=== PATIENT | female | born 1960 | race African-American/Black ===

== ENCOUNTER 2017-09-14 09:17 | Emergency (ER) | payer OTHER ==
[~2017-09-14] VITALS: Ht 160 cm; Wt 86.5 kg
[~2017-09-14 09:17] MED LIST: AMIT25TA9 PO; AMITRIPTYLINE; AMLO10TA80 PO; AMLODIPINE; ASPI-1079 PO; ASPIRIN; MAXZIDE; METO25TA6 PO; METOPROLOL; TRIA1TAB94 PO
[2017-09-14] MEDS ORDERED: METF750T2 PO (09:29)
[2017-09-14 10:55] VITALS: BP 176/92
[2017-09-14] MEDS ORDERED: IBUPROFEN 600MG TABLET PO ONE (11:00)
[2017-09-14] MEDS ORDERED: ACETAMINOPHEN 500MG TABLET PO ONE (11:30)
== END 2017-09-14 11:40 | disposition home or self-care (01) ==
LOC: ER 09:17
DX: S16.1XXA Strain of muscle, fascia and tendon at neck level, initial encounter (principal); M25.512 Pain in left shoulder; V49.49XA Driver injured in collision with other motor vehicles in traffic accident, initial encounter; Y93.89 Activity, other specified; Y92.410 Unspecified street and highway as the place of occurrence of the external cause; I10 Essential (primary) hypertension; E11.9 Type 2 diabetes mellitus without complications; Z79.82 Long term (current) use of aspirin; E05.90 Thyrotoxicosis, unspecified without thyrotoxic crisis or storm
CPT/HCPCS: 81025; 99282